=== PATIENT | female | born 1980 | race African-American/Black ===

== ENCOUNTER 2017-02-08 22:06 | Emergency (ER) | payer OTHER ==
[~2017-02-08] VITALS: Ht 165.1 cm; Wt 109.3 kg
[~2017-02-08 22:06] MED LIST: CIPROFLOXACN500 MG PO
[2017-02-08 23:05] LABS: HEMATOCRIT 34.9 % (37.0-47.0); HEMOGLOBIN 12.5 g/dl (12.0-16.0); IMMATURE GRANULOCYTES 0.6 % (0.0-1.0); MEAN CELL VOLUME 76.4 fL CALC (80.0-100.0); MEAN CORPUSCULAR HGB 27.4 pG CALC (26.0-32.0); MEAN CORPUSCULAR HGB CONC 35.8 g/L CALC (32.0-36.0); NEUT# 6.18 thou/uL (2.00-7.15); RED BLOOD COUNT 4.57 mill/uL (4.20-5.60)
[2017-02-08 23:06] LABS: URINE BILIRUBIN - DIPSTICK NEGATIVE (NEGATIVE); URINE BLOOD DIPSTICK LARGE (NEGATIVE); URINE CLARITY TURBID; URINE COLOR YELLOW; URINE GLUCOSE - DIPSTICK NEGATIVE (NEGATIVE); URINE KETONE TRACE mg/dL (NEGATIVE); URINE LEUK ESTERASE MODERATE (NEGATIVE); URINE NITRITE - DIPSTICK NEGATIVE (Negative); URINE PROTEIN - DIPSTICK NEGATIVE (NEG-TRACE); URINE SPECIFIC GRAVITY 1.025; URINE UROBILINOGEN - DIPSTICK 0.2 E.U./dL (0.2)
[2017-02-08 23:14] LABS: URINE BACTERIA MODERATE hpf; URINE SQUAMOUS EPITHELIAL CELL FEW EPI/hpf (0-FEW); URINE WBC 50-100 WBC/hpf (0-5)
[2017-02-08 23:20] LABS: ALBUMIN 4.3 g/dL (3.2-5.0); ALKALINE PHOSPHATASE 44 u/l (38-126); ANION GAP 16 (6-22 (CALC)); BILIRUBIN, TOTAL 0.4 mg/dL (0.0-1.4); BUN 7 mg/dL (7-17); BUN/CREATININE RATIO 12 (12-20 (CALC)); CALCIUM 9.5 mg/dL (8.4-10.2); CARBON DIOXIDE 20 mmol/l (22-30); CHLORIDE 105 mmol/l (95-108); CREATININE 0.6 mg/dL (0.5-1.0); GFR > 60 ML/MIN (>=60 (CALC)); GFR FOR AFR.AMER. > 60 ML/MIN (>=60 (CALC)); GLUCOSE 82 mg/dL (65-105); POTASSIUM 3.9 mmol/l (3.5-5.1); SGOT/AST 18 u/l (14-36); SGPT/ALT 34 u/l (9-52); SODIUM 137 mmol/l (137-146); TOTAL PROTEIN 7.2 g/dL (6.3-8.2)
[2017-02-09 00:02] LABS: BETA-HCG, QUANT(RESULT NUMBER) 34544 mIU/mL
[2017-02-09 01:30] VITALS: BP 118/73
[2017-02-09] MEDS ORDERED: CEPHALEXIN500 MG PO (02:06)
== END 2017-02-09 01:30 | disposition home or self-care (01) | DRG 781 ==
LOC: ED 22:06
PROVIDERS: Emergency Medicine
DX: O23.42 Unspecified infection of urinary tract in pregnancy, second trimester (principal); Z3A.14 14 weeks gestation of pregnancy

== ENCOUNTER 2018-01-25 02:56 | Emergency (ER) | payer SELFPAY ==
[~2018-01-25] VITALS: Ht 165.1 cm; Wt 100.0 kg
[~2018-01-25 02:56] MED LIST changes: +CEPHALEXIN500 MG PO; +IRON325 M1 PO; +PRE-NATAL PO
[2018-01-25 03:50] LABS: HEMATOCRIT 32.9 % (37.0-47.0); HEMOGLOBIN 10.9 g/dl (12.0-16.0); IMMATURE GRANULOCYTES 0.3 % (0.0-5.0); MEAN CORPUSCULAR HGB 23.2 pG CALC (26.0-32.0); MEAN CORPUSCULAR HGB CONC 33.1 g/L CALC (32.0-36.0); NEUT# 5.64 thou/uL (2.00-7.15); RED BLOOD COUNT 4.69 mill/uL (4.20-5.60); RED CELL DISTRI WIDTH 15.2 % (11.5-15.5)
[2018-01-25 03:51] LABS: MEAN CELL VOLUME 70.1 fL CALC (80.0-100.0)
[2018-01-25 03:57] LABS: ALBUMIN 4.1 g/dL (3.2-5.0); AMYLASE 71 u/l (30-110); BILIRUBIN, TOTAL 0.4 mg/dL (0.0-1.4); BUN 8 mg/dL (7-17); BUN/CREATININE RATIO 12 (12-20 (CALC)); CARBON DIOXIDE 21 mmol/l (22-30); CHLORIDE 108 mmol/l (95-108); CREATININE 0.7 mg/dL (0.5-1.0); GFR > 60 ML/MIN (>=60 (CALC)); GFR FOR AFR.AMER. > 60 ML/MIN (>=60 (CALC)); LIPASE 59 u/l (23-300); POTASSIUM 3.3 mmol/l (3.5-5.1); SGPT/ALT 38 u/l (9-52); TOTAL PROTEIN 7.4 g/dL (6.3-8.2)
[2018-01-25 03:58] LABS: ALKALINE PHOSPHATASE 96 u/l (38-126); ANION GAP 18 (6-22 (CALC)); SGOT/AST 47 u/l (14-36); SODIUM 144 mmol/l (137-146)
[2018-01-25] MEDS ORDERED: ZOFRAN ODT4 MG PO (04:47)
[2018-01-25] MEDS ORDERED: PREVACID30 M3 PO (04:47)
[2018-01-25] MEDS ORDERED: LORTAB 1010 MG PO (04:47)
[2018-01-25 05:02] VITALS: BP 149/75
== END 2018-01-25 05:16 | disposition home or self-care (01) | DRG 392 ==
LOC: ED 02:56
PROVIDERS: Emergency Medicine
DX: K29.70 Gastritis, unspecified, without bleeding (principal); R10.13 Epigastric pain; R11.0 Nausea; K44.9 Diaphragmatic hernia without obstruction or gangrene; Z98.84 Bariatric surgery status